=== PATIENT | male | born 1980 | race Hispanic/Latino ===

== ENCOUNTER 2017-12-02 20:46 | Emergency (ER) | payer OTHER ==
[2017-12-02] MEDS ORDERED: Amoxicillin-Clav 875-125 mg Tab PO STA (21:31)
--- NOTE | 2017-12-02 21:35 | ED PDOC ---
Arrival/HPI - General Chief Complaint: Eye Problem Time Seen by Provider: 12/02/17 21:31 - History of Present Illness Narrative History of Present Illness (Text): 37 y/o M c no PMHx p/w R eye swelling x 2-3 days. Patient states he recently went camping and suspects he was bitten by bugs because he has swollen, erythematous areas on his neck, back, and under his R eye. He states the other lesions are all improving but the lesion on his face just inferior to the eye is getting worse and is associated with a hardened lymph node anterior to the R ear. He denies vision change or any pain with eye movement. Denies fever, dyspnea. Past Medical History - Infectious Disease Hx of Infectious Diseases: None - Psychiatric Hx Substance Use: No - Surgical History Hx Eye Surgery: Yes (Right Eye Surgery as a child) Family/Social History Family/Social History: No Known Family HX Smoking Status: Heavy Smoker > 10 Cigarettes Daily Hx Alcohol Use: Yes Frequency of alcohol use: Socially Hx Substance Use: No Allergies/Home Meds Allergies/Adverse Reactions: Allergies No Known Allergies Allergy (Verified 12/02/17 21:19) Review of Systems - Physician Review All systems were reviewed & negative as marked: Yes - Review of Systems Constitutional: absent: Fevers Respiratory: absent: SOB Physical Exam - Physical Exam Narrative Physical Exam (Text): Gen: NAD Head: NC/AT Eyes: EOMI without pain. No conjunctival injection ENT: MMM Neck: Supple Chest: No tenderness CV: Regular rate Lungs: No respiratory distress Abd: Soft, NT Back: No deformity Extremities: No edema Skin: Erythematous, swollen areas on bilateral neck, mid back, and inferior to R eye Neuro: Alert Vital Signs Temp Pulse Resp BP Pulse Ox 12/02/17 21:18 98.0 F 89 18 119/79 96 Medical Decision Making ED Course and Treatment: Start antibiotics. No evidence of orbital cellulitis. Instructed to return for worsening erythema, spreading, fever, eye pain, pain with eye movement, vision change, or any other problem. - Medication Orders Current Medication Orders: Amoxicillin/Clavulanate Potassium (Augmentin 875 Mg-125 Mg Tab) 1 tab PO STAT STA PRN Reason: Protocol Stop: 12/02/17 21:32 Disposition/Present on Arrival - Present on Arrival Any Indicators Present on Arrival: No History of DVT/PE: No History of Uncontrolled Diabetes: No Urinary Catheter: No History of Decub. Ulcer: No History Surgical Site Infection Following: None - Disposition Have Diagnosis and Disposition been Completed?: Yes Diagnosis: Bug bite of face with infection Disposition: HOME/ ROUTINE Disposition Time: 21:35 Patient Plan: Discharge Condition: STABLE Discharge Instructions (ExitCare): Insect Bites and Stings Prescriptions: Amoxicillin/Clavulanate [Augmentin 875 MG-125 MG] 1 tab PO BID #20 tab Referrals: Christina Enriquez MD [Staff Provider] - Follow up with primary [facility] [Outside] - Follow up with primary
[2017-12-02 21:42] VITALS: RESP 18; TEMP 98; BMI 23.1
[2017-12-02 21:53] VITALS: BP 120/82; PULSE 85; O2SAT 100
== END 2017-12-02 21:52 | disposition home or self-care (01) ==
LOC: ED 20:46
DX: S00.86XA Insect bite (nonvenomous) of other part of head, initial encounter (principal); L08.9 Local infection of the skin and subcutaneous tissue, unspecified; W57.XXXA Bitten or stung by nonvenomous insect and other nonvenomous arthropods, initial encounter

== ENCOUNTER 2018-07-08 10:21 | Emergency (ER) | payer OTHER ==
[2018-07-08 11:47] VITALS: BMI 24.3
--- NOTE | 2018-07-08 12:32 | ED PDOC ---
Arrival/HPI - General Historian: Patient - History of Present Illness Narrative History of Present Illness (Text): 07/08/18 12:46 38 year old male with no significant PMH presents to the emergency department with intermittent back pain described as sharp/shooting x1 day while getting off his truck. It's 9/10 at worst, radiates down to the right toes, aggravated by sitting/sanding/walking, relieved by laying down. He reports milder symptoms on the left lower extremity as well. Patient denied focal neurological symptoms, loss of sensation in saddle area, bowel/urinary incontinence, fever, fatigue. Patient denied similar symptoms in the past, no h/o cancer, no trauma. 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 Patient denied chest pain, abdominal pain, nausea, vomiting, diarrhea. Time/Duration: 24 hours Symptom Onset: Sudden Symptom Course: Worsening Quality: Other (sharp) Severity Level: 9, Severe Activities at Onset: Significant Context: Sitting, Standing, Walking <Timothy Pearson - Last Filed: 07/08/18 16:15> <César Gusman - Last Filed: 07/08/18 17:29> - General Chief Complaint: Back Pain Time Seen by Provider: 07/08/18 11:54 Past Medical History - Provider Review Nursing Documentation Reviewed: Yes - Travel History Have you recently traveled outside [place] w/in the past 3 mons?: No - Past History Past History: No Previous - Infectious Disease Hx of Infectious Diseases: None - Tetanus Immunization Tetanus Immunization: Unknown - Past Medical History Past Medical History: No Previous - Cardiac Hx Cardiac Disorders: No - Pulmonary Hx Respiratory Disorders: No - Neurological Hx Neurological Disorder: No - HEENT Hx HEENT Disorder: No - Renal Hx Renal Disorder: No - Endocrine/Metabolic Hx Endocrine Disorders: No - Hematological/Oncological Hx Blood Disorders: No - Integumentary Hx Dermatological Disorder: No - Musculoskeletal/Rheumatological Hx Musculoskeletal Disorders: No - Gastrointestinal Hx Gastrointestinal Disorders: No - Genitourinary/Gynecological Hx Genitourinary Disorders: No - Psychiatric Hx Psychophysiologic Disorder: No Hx Substance Use: No - Surgical History Hx Eye Surgery: Yes (Right Eye Surgery as a child) - Anesthesia Hx Anesthesia: Yes Hx Anesthesia Reactions: No Hx Malignant Hyperthermia: No <Timothy Pearson - Last Filed: 07/08/18 16:15> Family/Social History - Physician Review Nursing Documentation Reviewed: Yes Smoking Status: Heavy Smoker > 10 Cigarettes Daily Hx Alcohol Use: Yes Hx Substance Use: No <Loretta Pearsonony - Last Filed: 07/08/18 16:15> Family/Social History: No Known Family HX <UzmaCésar - Last Filed: 07/08/18 17:29> Allergies/Home Meds <Loretta Pearsonony - Last Filed: 07/08/18 16:15> <UzmaCésar - Last Filed: 07/08/18 17:29> Allergies/Adverse Reactions: Allergies No Known Allergies Allergy (Verified 12/02/17 21:19) Review of Systems - Review of Systems Constitutional: Normal Eyes: Normal ENT: Normal Respiratory: Normal Cardiovascular: Normal Gastrointestinal: Normal Genitourinary Male: Normal Musculoskeletal: Back Pain Skin: Normal Neurological: Normal Endocrine: Normal Hemo/Lymphatic: Normal Psychiatric: Normal <Loretta Pearsonony - Last Filed: 07/08/18 16:15> - Physician Review All systems were reviewed & negative as marked: Yes - Review of Systems Constitutional: absent: Fatigue, Fevers Cardiovascular: absent: Chest Pain Gastrointestinal: absent: Abdominal Pain, Diarrhea, Nausea, Vomiting Musculoskeletal: absent: Normal <UzmaCésar - Last Filed: 07/08/18 17:29> Physical Exam Vital Signs Reviewed: Yes Temperature: Afebrile Blood Pressure: Normal Pulse: Regular Respiratory Rate: Normal Appearance: Positive for: Well-Appearing, Non-Toxic Pain Distress: Moderate Mental Status: Positive for: Alert and Oriented X 3 <Timothy Pearson - Last Filed: 07/08/18 16:15> Medical Decision Making - RAD Interpretation Radiology Orders: 07/08/18 12:26 LS SPINE AP/LAT [RAD] Stat - Medication Orders Current Medication Orders: Discontinued Medications Ketorolac Tromethamine (Toradol) 30 mg IVP STAT STA Stop: 07/08/18 12:28 <Loretta Pearsonony - Last Filed: 07/08/18 16:15> ED Course and Treatment: 07/08/18 12:46 Impression: 38 year old male presents to the Emergency department with intermittent back pain for 1 day while getting off his truck, described as sharp/shooting. Patient Seen with Resident: In agreement with resident note which contains more details about the patient. Patient seen and evaluated with resident. Came up with plan and treatment together. Differential Diagnosis included but are not limited to: sciatica, herniated disc, radiculopathy Plan: -- MRI of Spinal Canal Lumbar w/o contrast -- Flexeril -- Toradol -- Reassess and disposition Prior Visits: Notes and results from previous visits were reviewed. Patient was last seen in the emergency department on 12/02/17 for right eye swelling for the past 2-3 days prior to arrival. Patient was discharged home in stable condition, with diagnosis of bug bite of face with infection and prescribed Augmentin. Progress Notes: Patient reports sudden onset of pain prior to arrival, on exam it is reproducible and worse with straight leg testing. He described episode of leg weakness prior to arrival. MRI ordered. On current exam, no incontinence, reflexes intact and symmetric, no focal weakness, no saddle anesthesia. Pain improved with medication. MRI results reviewed with patient. Need for close follow-up reviewed with patient and family. Risks and side effects of medications reviewed in depth. On re-exam, he is ambulatory and has no focal weakness or sensory deficits. Abd omen soft and nontender. No fever or nausea. 07/08/18 17:26 07/08/18 17:29 - RAD Interpretation Radiology Orders: 07/08/18 12:44 SPINAL CANAL LUMBAR W/O CONT [MRI] Stat - Medication Orders Current Medication Orders: Discontinued Medications Cyclobenzaprine HCl (Flexeril) 10 mg PO STAT STA Stop: 07/08/18 12:46 Last Admin: 07/08/18 13:00 Dose: 10 mg Ketorolac Tromethamine (Toradol) 15 mg IM STAT STA Stop: 07/08/18 12:46 Last Admin: 07/08/18 13:00 Dose: 15 mg MAR Pain Assessment Document 07/08/18 13:00 ERNST (Rec: 07/08/18 13:[address] [facility] [id number]) Pain Reassessment Is this a pain reassessment? No Sleep Is patient sleeping during reassessment? No Presence of Pain Presence of Pain Yes IM Administration Charges Document 07/08/18 13:00 ERNST (Rec: 07/08/18 13:[address] [facility] [id number]) Charges for Administration # of IM Administrations 1 <César Gusman - Last Filed: 07/08/18 17:29> - Scribe Statement The provider has reviewed the documentation as recorded by the Scribe Adri Mary All medical record entries made by the Scribe were at my direction and personally dictated by me. I have reviewed the chart and agree that the record accurately reflects my personal performance of the history, physical exam, medical decision making, and the department course for this patient. I have also personally directed, reviewed, and agree with the discharge instructions and disposition. <César Gusman - Last Filed: 07/08/18 17:29> Disposition/Present on Arrival - Present on Arrival Any Indicators Present on Arrival: No History of DVT/PE: No History of Uncontrolled Diabetes: No Urinary Catheter: No History of Decub. Ulcer: No History Surgical Site Infection Following: None - Disposition Patient Plan: Discharge <Timothy Pearson - Last Filed: 07/08/18 16:15> <César Gusman - Last Filed: 07/08/18 17:29> - Disposition Diagnosis: Lumbar disc herniation with radiculopathy, Back pain Disposition: HOME/ ROUTINE Patient Problems: Current Active Problems Problem Status Onset Back pain Acute Lumbar disc herniation with radiculopathy Acute Condition: FAIR Discharge Instructions (ExitCare): Low Back Pain (DC), Herniated Disc (DC), Radiculopathy (DC) Additional Instructions: Rest. No heavy lifting or strenuous activity. For any increased numbness or pain, any weakness, any incontinence of urine or stool, any abdominal pain, any urinary or bowel symptoms, get rechecked. Follow-up with specialist as directed, return to ER for any worsening of any symptoms. CHECO PEÑALOZA, thank you for letting us take care of you today. Your provider was César Gusman MD and you were treated for back pain. The emergency medical care you received today was directed at your acute symptoms. If you were prescribed any medication, please fill it and take as directed. It may take several days for your symptoms to resolve. Return to the Emergency Department if your symptoms worsen, do not improve, or if you have any other problems. Please contact your doctor or call one of the physicians/clinics you have been referred to that are listed on the Patient Visit Information form that is included in your discharge packet. Bring any paperwork you were given at discharge with you along with any medications you are taking to your follow up visit. Our treatment cannot replace ongoing medical care by a primary care provider outside of the emergency department. Thank you for allowing the [facility] team to be part of your care today. If you had an X-Ray or CT scan: A Radiologist will review the ED reading if any change in treatment is needed we will contact you. I Prescriptions: Cyclobenzaprine [Cyclobenzaprine HCl] 10 mg PO TID PRN #21 tab PRN Reason: Muscle Spasm Naproxen [Naprosyn Tab] 250 mg PO BID PRN #10 tab PRN Reason: Pain, Mild (1-3) Referrals: [facility] [Outside] - Follow up with primary Daniel Argueta MD [Staff Provider] - Follow up with primary FAMILY PROVIDER,NO [Primary Care Provider] - Follow up with primary Christina Enriquez MD [Medical Doctor] - Follow up with primary Forms: [employer] (Surinamese), WORK NOTE
--- NOTE | 2018-07-08 15:11 | MRI ---
Date of service: 07/08/2018 PROCEDURE: MR LUMBAR SPINE WITHOUT CONTRAST HISTORY: Bilateral lower extremity weakness episode COMPARISON: None available. TECHNIQUE: Multiecho multiplanar sequences were performed through the lumbar spine without the use of intravenous contrast. FINDINGS: There is normal alignment of the lumbar vertebral bodies. There is normal lumbar lordosis. There is no acute fracture, spondylolysis or spondylolisthesis. Bone marrow signal is within normal limits. The conus medullaris terminates at a normal level and the nerve roots of cauda equina are normal. T12-L1: No disc herniation, spinal canal stenosis or neural foraminal narrowing. L1-2: No disc herniation, spinal canal stenosis or neural foraminal narrowing. L2-3: No disc herniation, spinal canal stenosis or neural foraminal narrowing. L3-4: Minimal posterior disc bulge without spinal canal stenosis or neural foraminal narrowing. L4-5: Mild posterior disc bulge and facet arthropathy without spinal canal stenosis or neural foraminal narrowing. L5-S1: Broad-based central disc protrusion indents the ventral thecal sac without central spinal canal stenosis. No neural foraminal narrowing. Mild bilateral facet arthropathy. OTHER FINDINGS: The paraspinous soft tissues are normal. Imaged portion of the retroperitoneum is within normal limits. A subcentimeter T2 hyperintense lesion in the lower pole of the right kidney is statistically most compatible with a simple cortical cyst. IMPRESSION: Broad-based central disc protrusion and mild facet arthropathy at L5-S1 without central spinal canal stenosis or neural foraminal narrowing.
[2018-07-08 15:44] VITALS: RESP 18; TEMP 97.8
[2018-07-08 16:44] VITALS: BP 134/75; PULSE 79
[2018-07-08 18:24] VITALS: O2SAT 99
== END 2018-07-08 17:30 | disposition home or self-care (01) ==
LOC: ED 10:21
DX: M51.27 Other intervertebral disc displacement, lumbosacral region (principal); F17.210 Nicotine dependence, cigarettes, uncomplicated
CPT/HCPCS: 72148; 96372; 99283; J1885